=== PATIENT | female | born 1970 | race African-American/Black ===

== ENCOUNTER 2024-03-02 00:32 | Emergency (ER) | payer MEDICAID, OTHER ==
[~2024-03-02] VITALS: Ht 167.6 cm; Wt 64.0 kg
[2024-03-02 00:36] VITALS: BP 129/75; PULSE 87; RESP 16; TEMP 98.9; O2SAT 99
[2024-03-02] MEDS ORDERED: TETANUS, DIPHTHERIA, PERTUSSIS VAC/PF 0.5ML (>10YR OLD) IM ONE (01:30)
[2024-03-02] MEDS ORDERED: IBUPROFEN 600MG TABLET PO ONE (01:30)
[2024-03-02] MEDS ORDERED: BACITRACIN ZINC OINT UDPKT TOP ONE (01:30)
[2024-03-02] MEDS ORDERED: AMOXICILLIN/POTASSIUM CLAVULANATE 875/125MG TAB PO ONE (01:30)
[2024-03-02] MEDS ORDERED: IBUP-2029 MT (01:46)
[2024-03-02] MEDS ORDERED: AMOX1TAB16 MT (01:46)
[2024-03-02] MEDS ORDERED: MUPI1OIN4 TP (01:46)
== END 2024-03-02 03:22 | disposition home or self-care (01) ==
LOC: ER 00:32
DX: S81.851A Open bite, right lower leg, initial encounter (principal); J45.909 Unspecified asthma, uncomplicated; Z86.59 Personal history of other mental and behavioral disorders; Y04.1XXA Assault by human bite, initial encounter; Y93.89 Activity, other specified; Y92.89 Other specified places as the place of occurrence of the external cause; Y99.8 Other external cause status
CPT/HCPCS: 99283; Z7610

== ENCOUNTER 2024-05-06 09:50 | Emergency (ER) | payer MEDICAID ==
[~2024-05-06] VITALS: Ht 162.6 cm; Wt 60.0 kg
[~2024-05-06 09:50] MED LIST: AMOX1TAB16 MT; IBUP-2029 MT; MUPI1OIN4 TP
[2024-05-06 09:56] VITALS: BP 136/78; PULSE 76; RESP 18; TEMP 98.4; O2SAT 99
[2024-05-06] MEDS ORDERED: ACET-2708 MT (10:29)
[2024-05-06] MEDS ORDERED: LIDO700A15 TP (10:29)
[2024-05-06 13:44] LABS: CLARITY URINE CLOUDY (CLEAR); COLOR URINE YELLOW (YELLOW); GLUCOSE URINE NEGATIVE (NEGATIVE); KETONES URINE NEGATIVE (NEGATIVE); LEUKOCYTE ESTERASE URINE 2+ (NEGATIVE); NITRITE URINE POSITIVE (NEGATIVE); OCCULT BLOOD URINE 3+ (NEGATIVE); PH URINE 6.5 (4.5-8.0); PROTEIN URINE 2+ (NEGATIVE); SPECIFIC GRAVITY URINE 1.025 (1.005-1.030)
[2024-05-06 13:53] LABS: BACTERIA URINE 4+; SQUAMOUS EPITHELIAL CELL URINE 1+ /lpf (RARE/1+); WBC URINE 25-50 /hpf (0-2); YEAST URINE NONE SEEN
[2024-05-06] MEDS ORDERED: NITR-87 MT (14:11)
== END 2024-05-06 14:44 | disposition home or self-care (01) ==
LOC: ER 09:52
DX: G89.29 Other chronic pain (principal); M54.9 Dorsalgia, unspecified; N39.0 Urinary tract infection, site not specified; J45.909 Unspecified asthma, uncomplicated
CPT/HCPCS: 81003; 87077; 87186; 99283